=== PATIENT | male | born 1950 | race Hispanic/Latino ===

== ENCOUNTER 2021-06-08 12:41 | Outpatient (CLI) | payer MEDICARE, OTHER | END 2021-06-08 12:42 | disposition home or self-care (01) | LOC: CSHWCC 12:41 | PROVIDERS: ATTEND Nurse Practitioner Family | DX: S61.22 Laceration with foreign body of finger without damage to nail (principal); S61.402A Unspecified open wound of left hand, initial encounter | CPT/HCPCS: 97139; G0463; 99203 ==

== ENCOUNTER 2021-06-08 14:31 | Outpatient (CLI) | payer MEDICARE, OTHER | END 2021-06-08 14:32 | disposition home or self-care (01) | LOC: CSHRAD 14:31 | PROVIDERS: ATTEND Family Medicine | DX: M79.645 Pain in left finger(s) (principal); M19.042 Primary osteoarthritis, left hand ==

== ENCOUNTER 2021-06-15 08:46 | Outpatient (CLI) | payer MEDICARE, OTHER | END 2021-06-15 08:47 | disposition home or self-care (01) | LOC: CSHWCC 08:46 | PROVIDERS: ATTEND Nurse Practitioner Family | DX: S61.402D Unspecified open wound of left hand, subsequent encounter (principal); S61.22 Laceration with foreign body of finger without damage to nail ==

== ENCOUNTER 2023-09-04 09:49 | Outpatient (CLI) | payer OTHER, MEDICAID ==
[2023-09-04 11:44] LABS: Anion Gap 12 mmol/L (10-20); BUN (Urea Nitrogen) 30 mg/dL (8.4-25.7); Calc. Creatinine Clearance 0 mL/min (70-130); Calcium 8.5 mg/dL (7.8-10.44); Carbon Dioxide 21 mmol/L (23-31); Chloride 110 mmol/L (98-107); Estimated GFR 63; Glucose 100 mg/dL (83-110); Potassium 4.3 mmol/L (3.5-5.1); Sodium 139 mmol/L (136-145)
== END 2023-09-04 09:50 | disposition home or self-care (01) ==
LOC: CSHLAB 09:49
PROVIDERS: ATTEND Surgery
DX: Z01.818 Encounter for other preprocedural examination (principal); C67.9 Malignant neoplasm of bladder, unspecified
CPT/HCPCS: 80048; 93005; 93010

== ENCOUNTER 2023-09-05 08:10 | Outpatient (CLI) | payer OTHER ==
[2023-09-05] MEDS ORDERED: Iopamidol 300 61% 100 ML VIAL FS ONE (09:53)
[2023-09-05] MEDS ORDERED: Magnevist 469MG/ML 20 ML VIAL ONE (09:59)
== END 2023-09-05 08:11 | disposition home or self-care (01) ==
LOC: CSHMRI 08:10
PROVIDERS: ATTEND Internal Medicine
DX: C67.1 Malignant neoplasm of dome of bladder (principal); K76.89 Other specified diseases of liver; J84.10 Pulmonary fibrosis, unspecified; I25.10 Atherosclerotic heart disease of native coronary artery without angina pectoris; I25.84 Coronary atherosclerosis due to calcified coronary lesion
CPT/HCPCS: 71260; 74183

== ENCOUNTER 2023-09-08 05:41 | Day surgery (SDC) | payer OTHER, MEDICAID ==
[2023-09-04 10:21] VITALS: BMI 27.4
[2023-09-08] MEDS ORDERED: Bupivacaine PF 0.5% 30 ML VIAL ONE (06:24)
[2023-09-08] MEDS ORDERED: EPINEPHrine 1 MG/ML VIAL ONE (06:24)
[2023-09-08] MEDS ORDERED: CEFAZOLIN 2 GM VIAL ONE (06:42)
[2023-09-08] MEDS ORDERED: fentaNYL 50 mcg/mL 1 mL Vial ONE (06:54)
[2023-09-08] MEDS ORDERED: PROPOFOL 20 ML ONE ×2 (06:54→07:04)
[2023-09-08] MEDS ORDERED: ePHEDrine Sulfate 50 MG/10 ML VIAL ONE (07:02)
[2023-09-08] MEDS ORDERED: Ondansetron PF 4 MG/2 ML Vial ONE (07:19)
[2023-09-08] MEDS ORDERED: HYDROcodone/Acetaminophen 5/325 mg Tablet PO PRN (07:34)
[2023-09-08] MEDS ORDERED: Acetaminophen 325 MG TAB PO PRN (07:34)
== END 2023-09-08 08:25 | disposition home or self-care (01) ==
LOC: CSHSDC 05:41
PROVIDERS: ATTEND Surgery
PROC: 0JH60WZ Insertion of Totally Implantable Vascular Access Device into Chest Subcutaneous Tissue and Fascia, Open Approach (ICD-10-PCS; principal; 2023-09-08)
DX: C67.9 Malignant neoplasm of bladder, unspecified (principal); F81.9 Developmental disorder of scholastic skills, unspecified
CPT/HCPCS: 36561; 71045; C1788; J0171; J3010; J0665; J1642; J2405; J2704

== ENCOUNTER 2025-07-02 14:42 | Outpatient (CLI) | payer OTHER, MEDICAID ==
[2025-07-02 16:40] LABS: #Basophils Less than 0.03 10x3/uL (0.0-0.2); #Eosinophils 0.20 10x3/uL (0.0-0.5); #Monocytes 0.61 10x3/uL (0.0-1.1); #Neutrophils 5.67 10x3/uL (1.5-8.4); %Basophils 0.3 % (0.0-2.0); %Eosinophils 2.6 % (0.0-6.0); %Lymphocytes 16.8 % (18.0-47.0); %Monocytes 7.8 % (0.0-10.0); %Neutrophils 72.2 % (40.0-75.0); Anion Gap 12 mmol/L (10-20); BUN (Urea Nitrogen) 22 mg/dL (8.4-25.7); Calc. Creatinine Clearance 0 mL/min (70-130); Calcium 8.0 mg/dL (7.8-10.44); Carbon Dioxide 22 mmol/L (23-31); Chloride 106 mmol/L (98-107); Glucose 98 mg/dL (83-110); Hematocrit 33.9 % (38.8-50.0); Hemoglobin 11.0 g/dL (13.5-17.5); Mean Corpuscular Hemoglobin 30.5 pg (27.0-33.0); Mean Corpuscular Volume 93.9 fL (81.2-95.1); Platelet Count 228 10x3/uL (150-450); Potassium 4.2 mmol/L (3.5-5.1); Red Blood Cell (RBC) Count 3.61 10x6/uL (4.32-5.72); Sodium 136 mmol/L (136-145); White Blood Cell (WBC) Count 7.84 10x3/uL (3.5-10.5)
== END 2025-07-02 14:43 | disposition home or self-care (01) ==
LOC: CSHLAB 14:42
PROVIDERS: ATTEND Surgery
DX: Z01.818 Encounter for other preprocedural examination (principal)
CPT/HCPCS: 80048; 85025; 93005; 93010

== ENCOUNTER 2025-07-03 06:50 | Day surgery (SDC) | payer OTHER, MEDICAID ==
[2025-07-02 16:02] VITALS: BMI 25.4
[~2025-07-03 06:50] MED LIST: Bupivacaine HCl 0.5%/Epinephrine 1:200,000/PF 30 ml Vial ONE
[2025-07-03] MEDS ORDERED: CEFAZOLIN 2 GM VIAL ONE (06:55)
[2025-07-03] MEDS ORDERED: PROPOFOL 20 ML ONE (07:28)
[2025-07-03] MEDS ORDERED: Lidocaine 1% PF 5 ML VIAL ONE (07:28)
[2025-07-03] MEDS ORDERED: PHENYLEPHRINE-NS 100 MCG/ML 10 ML SYRINGE ONE (07:35)
== END 2025-07-03 09:00 | disposition home or self-care (01) ==
LOC: CSHSDC 06:50
PROVIDERS: ATTEND Surgery
PROC: 0JH60WZ Insertion of Totally Implantable Vascular Access Device into Chest Subcutaneous Tissue and Fascia, Open Approach (ICD-10-PCS; principal; 2025-07-03)
DX: C67.9 Malignant neoplasm of bladder, unspecified (principal); I10 Essential (primary) hypertension; Z87.891 Personal history of nicotine dependence; Z79.899 Other long term (current) drug therapy
CPT/HCPCS: 36561; 71045; J1100; J2704; C1788; J1642